=== PATIENT | male | born 1965 | race Caucasian/White ===

== ENCOUNTER 2024-08-02 11:19 | Emergency (ER) | payer OTHER ==
[2024-08-02] VITALS (8 sets, daily range): BP systolic 117–146; BP diastolic 78–98
[~2024-08-02] VITALS: Ht 188 cm; Wt 95.2 kg
[2024-08-02] MEDS ORDERED: NAPROXEN500 MG PO (12:46)
== END 2024-08-02 13:20 | disposition home or self-care (01) | DRG 563 ==
LOC: ED 11:19
DX: S46.811A Strain of other muscles, fascia and tendons at shoulder and upper arm level, right arm, initial encounter (principal); X50.0XXA Overexertion from strenuous movement or load, initial encounter; Y93.89 Activity, other specified